=== PATIENT | male | born 1995 ===

== ENCOUNTER 2017-03-19 05:57 | Day surgery (SDC) | payer OTHER ==
--- NOTE | 2017-03-11 10:32 | HP ---
HISTORY AND PHYSICAL: Performed on 03/19/2017 at 7:40AM DATE OF PLANNED ADMISSION AND SURGERY: 03/19/17 HISTORY OF PRESENT ILLNESS: Mr. Tony is a 22-year-old white male who is admitted for bilateral vasectomy for elective permanent sterilization. Mr. Tony is to a 27-year-old. They have 2 boys, aged 15 months and 5 weeks. He presented to my office 3 months ago requesting bilateral vasectomy for permanent sterilization. At his initial visit, we had a long talk regarding the procedure and its implication of permanent sterility especially considering his relatively young age. The patient was very sure about his decision, having already 2 children and he wanted to proceed with the procedure. He called the office and requested that the procedure be done under anesthesia. PAST MEDICAL HISTORY AND SYSTEM REVIEW: Otherwise completely negative. He is in very good health. PAST SURGICAL HISTORY: Relevant for a right inguinal hernia repair at the age of 1. MEDICATIONS: He is on no chronic medications. ALLERGIES: He denies any allergies to medications. SOCIAL HISTORY: He chews tobacco. He does not smoke. PHYSICAL EXAMINATION GENERAL: Pleasant and healthy-looking white male. VITAL SIGNS: Blood pressure 120/80, pulse of 60. LUNGS: Clear. HEART: Regular and rhythmic. No murmurs. ABDOMEN: Soft. No masses, no tenderness, and no CVA tenderness. EXTERNAL GENITALIA: He is not circumcised. There are no penile lesions. Testes appear normal without any masses. The vas deferens is present bilaterally. No hydrocele or varicocele. The epididymides feel normal. IMPRESSION: Elective sterilization consult with normal physical exam. PLAN: I had a long discussion with the patient regarding the implication of the bilateral vasectomy, namely permanent sterility, considering his relatively young age. . I discussed the procedure in detail. Some of the potential complications including small incidence of infection, hematoma were discussed. We also discussed the 5% to 10% occurrence of epididymal discomfort and epididymal granuloma. I also discussed the small incidence of spontaneous reversal of the vasectomy. I discussed again the same, including the resultant permanent sterility, with Mr Tony in the OR holding area before proceeding with the vasectomy, and before he signed the OR consents. He also understands that he has to continue contraception for 3 months after the vasectomy and then he will have a semen analysis to confirm the success of the procedure. All his questions were answered. [id number]/[facility] #: [id number] MTDD
[~2017-03-19 05:57] MED LIST: Buffered Lidocaine 0.9% SYRIN* 5 ML/SYR SYRINGE INTRADERM ONE
[2017-03-19] MEDS ORDERED: Famotidine IV* 10 MG/ML 2 ML (20 mg) IV ONE (06:00)
[2017-03-19] MEDS ORDERED: Famotidine IV* 10 MG/ML 2 ML (20 mg) ONE (06:17)
[2017-03-19] MEDS ORDERED: Lidocaine 1% INJ* 10 MG/ML 30 ML SDV ONE (07:09)
[2017-03-19] MEDS ORDERED: fentaNYL* 50 MCG/ML 2 ML VIAL (100 MCG VIAL) ONE (07:39)
[2017-03-19] MEDS ORDERED: Lidocaine 2% PF * 5 ML VIAL ONE (07:39)
[2017-03-19] MEDS ORDERED: Midazolam* 1 MG/ML 10 ML VIAL (10 MG) ONE (07:39)
[2017-03-19] MEDS ORDERED: Ketorolac INJ* 30 MG/ML 1 ML VIAL ONE (07:45)
[2017-03-19] MEDS ORDERED: Propofol* 10 MG/ML 20 ML BTL IV PUSH ONE (07:45)
[2017-03-19] MEDS ORDERED: Ondansetron INJ* 2 MG/ML VIAL ONE (07:45)
[2017-03-19] MEDS ORDERED: KETAMINE HCL* 50 MG/ML 10 ML VIAL ONE (07:56)
[2017-03-19] MEDS ORDERED: DiMENhydriNATE IV* 50 MG/ML VIAL IV PUSH PRN (08:31)
[2017-03-19] MEDS ORDERED: Naloxone* 0.4 MG/ML 1 ML VIAL IV PRN (08:31)
[2017-03-19] MEDS ORDERED: Acetaminophen TAB* 325 MG PO PRN (08:31)
[2017-03-19] MEDS ORDERED: Acetaminophen TAB* 325 MG ONE (10:02)
[2017-03-19 10:07] VITALS: BP 119/63
--- NOTE | 2017-03-19 16:24 | OP ---
OPERATIVE REPORT: DATE OF OPERATION: 03/19/17 DATE OF : 89 SURGEON: Edy Teran MD ANESTHESIOLOGIST: Nani Cheung MD ANESTHESIA: IV sedation with MAC. PRE-OP DIAGNOSIS: Elective sterilization. POST-OP DIAGNOSIS: Elective sterilization. OPERATIVE PROCEDURE: Bilateral vasectomy. INDICATIONS: Mr. Tony is a 22-year-old who is to a 27-year-old and the couple have 2 children, below the age of 18 months. He presented to my office 3 months ago for elective sterilization consult and at that time, we discussed the procedure in detail and its implication of permanent sterility. The patient called and wanted the procedure to be done in the hospital under IV sedation. Preoperatively, in the holding area, I again discussed the vasectomy and its implication of permanent sterility. This was stressed considering his young age. The patient still wanted to proceed with the procedure and he signed the consents for it. DESCRIPTION OF PROCEDURE: The patient was placed in the supine position and under IV sedation, the genital area was prepped and draped. The left vas was palpated in the left scrotum and was brought up to just underneath the scrotal skin. A total of 2 cc of 1% Xylocaine was used to infiltrate the skin and the tissue around the vas segment. A small skin puncture was performed over the vas. The vas was identified and was lifted outside the incision using a vas hook. The adventitia over the vas was then divided freeing the vas from its vessels and the surrounding tissues. The deferensial vessels were spared. A 1-cm segment of vas then divided in between hemoclips using the coagulation current. Fascial interposition was then performed using a 4-0 chromic suture. After making sure there was very good hemostasis, the vas ends were dropped inside the scrotal cavity. This scrotal incision was closed using a subcuticular suture of 4-0 chromic. Exactly the same procedure was performed on the right side. The patient tolerated the procedure well and left the operating room in good condition. Instructions were given for followup care. The patient is to continue with contraception for 3 months. Semen analysis will be obtained at that time to confirm azoospermia. [id number]/[facility] #: [id number] MTDD
== END 2017-03-19 10:26 | disposition home or self-care (01) ==
LOC: OR 05:57
PROVIDERS: ATTEND Urology
DX: Z30.2 Encounter for sterilization (principal)
CPT/HCPCS: A9270-GY; J1885; J2250; J2405; J2704; J3010